=== PATIENT | male | born 1960 | race Caucasian/White ===

== ENCOUNTER 2016-10-10 12:30 | Inpatient (IN) | payer OTHER ==
[~2016-10-10] VITALS: Ht 175.3 cm; Wt 99.9 kg
--- NOTE | ~2016-10-10 | DS ---
ADMIT: 10/10/2016 RM/LOC: 305 [facility] MR#: [id number] [address] [address] SRIDEVI GUTIERREZ [address] [place] [address] General Discharge Summary SEX: M AGE: 56 : 1960 ADMISSION DATE: 10/10/2016 DISCHARGE DATE: 10/15/2016 SERVICE: Neurosurgery. REASON FOR ADMISSION: 1. Right thalamic hemorrhage. 2. Hypertension. 3. Fall. CONSULTS: Dr. Rigoberto Gutierrez with [facility]. HOSPITAL COURSE: Mr. Gutierrez is a very pleasant 56-year-old gentleman. On the day of admission, he was in his normal state of health, had gotten up and went out and had coffee with friends. After returning home from having coffee, he had a conversation with his , she then left to run some errands. He reports he was sitting in the chair, started to feel little nauseated, started to get up to go to the restroom and fell. He reports his left side was weak and he was really not able to move it. He reports that he was able to crawl to the phone and called 911. He was brought to the [facility] Emergency Room. He did verbalize decreased sensation on his left side. His speech was dysarthric, but appropriate. He had some dysmetria with his eyes and some decreased ability to track to the left with some left-sided facial droop and tongue deviation to the left. He did have spastic plegia on the left. CT scan of his head was obtained, which revealed a right-sided thalamic hemorrhage. He was admitted to the intensive care unit for close monitoring and care. Dr. Rigoberto Gutierrez was consulted for co- management of his comorbidities. Hospital day #2, he was awake and alert, he was afebrile, and his vital signs were stable. He had some left flexor extension, but was still spastic with mild improvement. His CT scan showed some slight intraventricular extension of his hemorrhage. He worked with Physical Therapy, Occupational Therapy, and Speech Therapy and tolerated this quite well. He did have an MRI of his brain and had a slight reaction to the contrast and was given some IV Benadryl and tolerated it very well. His MRI revealed a stable right thalamic intraparenchymal hematoma. He also had a carotid ultrasound that revealed no significant stenosis. Hospital day #3, he was awake and alert, he was oriented x4. He was afebrile, and his vital signs were stable. He was moving all extremities on the right, able to move his left pointer finger. His left arm remained spastic with flexor extension. He continued to have no movement of his left leg. He continued to tolerate physical therapy, occupational therapy, and speech therapy. His oral hypertensives were increased. Hospital day #4, he was awake and alert, he was afebrile, and his vital signs were stable. He was moving all extremities x4. It was improved on left. He did have supination and pronation 3/5 to the left upper extremity. He continued to work with therapies and tolerated this well. Hospital day #5, he was awake and alert, he was afebrile, and his vital signs were stable. He was moving all extremities x4. His left hand had some function with 2/5 strength. Hospital day #6, he was awake and alert, he was afebrile, and his vital signs were stable. He was moving all extremities x4. ADMIT: 10/10/2016 RM/LOC: 305 [facility] MR#: [id number] [address] [address] SRIDEVI GUTIERREZ [address] [place] [address] General Discharge Summary SEX: M AGE: 56 : 1960 His left upper extremity with 3/5, his left lower extremity with 3-/5, and he was evaluated by the Inpatient Rehabilitation Unit and deemed to be an appropriate candidate for further inpatient rehabilitation with the plan to return to his prior function of living status. On the day of discharge, he was deemed medically fit for transfer to the Inpatient Rehabilitation Unit. DISCHARGE CONDITION: Good. MEDICATIONS: 1. Colace 100 mg p.o. b.i.d. 2. Coreg 12.5 mg p.o. b.i.d. 3. Hyzaar 100/25, one p.o. daily. 4. Lexapro 10 mg p.o. daily. 5. Milk of magnesia 10 mL p.o. daily p.r.n. 6. Norvasc 5 mg b.i.d. 7. Protonix 40 mg daily. 8. Senokot S b.i.d. p.r.n. 9. Dulcolax 10 mg suppository daily p.r.n. 10.Catapres 0.1 mg p.o. t.i.d. p.r.n. 11.Hydrocodone 5/325 q.4 hours p.r.n. 12.Maalox 30 mL p.o. q.6 hours p.r.n. 13.Tylenol 325 mg two tablets p.o. q.4 hours p.r.n. 14.Zofran 4 mg p.o. q.6 hours p.r.n. DISCHARGE INSTRUCTIONS: Per Dr. Gutierrez: He can have a regular thin liquid diet. He may shower per his norm. He is a fall precaution. He is to continue with physical therapy and occupational therapy. He will call with any questions or concerns including neurological worsening, signs or symptoms of infection, or any other issues. FOLLOWUP: He will follow up with Dr. Gutierrez in one month after discharge. DISPOSITION: He was discharged to the Inpatient Rehabilitation Unit. Total [id number] time for the discharge planning and care coordination was 30 minutes. Naz Meraz APRN / Jon Gutierrez MD / malia JOB #: [id number] CC: Jno Gutierrez MD, Attending Physician Jon Gutierrez MD, Family Physician
--- NOTE | 2016-10-14 11:47 | CO ---
ADMIT: 10/10/2016 RM/LOC: 305 [facility] MR#: [id number] [address] [address] SRIDEVI GUTIERREZ [address] [place] [address] Consultation SEX: M AGE: 56 : 1960 DATE OF CONSULTATION: 10/10/2016 ATTENDING PHYSICIAN: Jon Gutierrez CONSULTING PHYSICIAN: Rigoberto Gutierrez MD REASON FOR CONSULT: Assist with medical management. HISTORY OF PRESENT ILLNESS: The patient is a very pleasant 56-year-old gentleman. He has a past medical history of hypertension and depression, who presented to [facility] Emergency Room today with stroke- like symptoms. He had difficulty with left-sided numbness and hemiplegia. He was noted to be quite hypertensive. CT scanning showed a right thalamic intercerebral bleed. He is admitted for further evaluation and treatment. I am asked to see him for assistance with medical management. The patient noticed has a long history of hypertension and notes medications are not always taken regularly, forgets them frequently. Right now, he denies chest pain, headache. No fevers, chills, or cough, just feels uncomfortable. No bowel or bladder complaints are noted. PAST MEDICAL HISTORY: 1. Hypertension. 2. History of palpitations. 3. Depression. 4. History of tobacco abuse. CURRENT MEDICATIONS: Include: 1. Lexapro. 2. Carvedilol. 3. Losartan. ALLERGIES: NO KNOWN MEDICAL ALLERGIES. SOCIAL HISTORY: Occasional alcohol. He smokes cigars occasionally. Lives in [place]. Normally seen by Dr. Bell over in [place]. REVIEW OF SYSTEMS: Noted above. All other systems were reviewed and are negative. FAMILY HISTORY: Noncontributory. PHYSICAL EXAMINATION: VITAL SIGNS: 97.5, 70, 16, 132/69, 96% on room air. GENERAL: This is a gentleman, who actually appears a little younger than his stated age. HEENT: Head is normocephalic. He does have what looks like abrasion right temporal area. Otherwise, no other lesions are noted. Pupils were equal, round, reactive to light. Patient does not follow cardinal gaze with me right now. His mucous membranes are moist. NECK: Supple. ADMIT: 10/10/2016 RM/LOC: 305 [facility] MR#: [id number] [address] [address] SRIDEVI GUTIERREZ [address] [place] [address] Consultation SEX: M AGE: 56 : 1960 LUNGS: Clear. HEART: Regular. ABDOMEN: Soft, nontender, nondistended. Positive bowel sounds. EXTREMITIES: He has no significant edema. He has good pulses peripherally. NEUROLOGIC: Outside of his lack of cooperation with cardinal gazes, his cranial nerves are intact. He has good strength on the right upper and lower extremity. On the left, he has diminished sensation throughout as well as he has brisk reflexes more so on the left, especially at the left patella, he has a positive Babinski on the left as well. LABORATORY AND X-RAY DATA: Lab work shows hemoglobin of 15.7, white count 11.4, with 178,000 platelets. Mag is 1.7. Normal LFTs; AST 6.5. Sodium 141, potassium 3.6, BUN is 18, creatinine 1.0. Calcium is 8.2. EKG showed normal sinus rhythm at 67 beats per minute. He had normal axis, normal intervals. I do not see any significant ST or T-wave changes. CT scan of the head showed right hemorrhagic infarct within the thalamus measuring 25 x 17 mm. No midline shift. No mass effect to the ventricle. No intraventricular blood. No extra axial fluid collections are seen. His chest x- ray shows mild cardiomegaly, maybe a little bit left lower lobe atelectasis. ASSESSMENT AND PLAN: 1. Right thalamic bleed with left hemiplegia and left sensory deficits. 2. Hypertension, chronic. 3. Depression. 4. History of tobacco abuse/cigars. 5. History of medication noncompliance. 6. Left lower lobe atelectasis. We will follow along closely throughout the hospitalization, try to keep his blood pressure goals, you know, really under 150 range. He is on nicardipine, which I feel like is reasonable at this time. I am going to hold his oral medications. He will be seen by PT/OT and Speech. We will follow up MRI tomorrow and we will add those orals back as appropriate as his swallowing allows us to, and we will follow along with Neurosurgery. Rigoberto Gutierrez MD/ malia JOB #: [id number] CC: Jon Gutierrez, Attending Physician Jon Gutierrez, Family Physician
--- NOTE | 2016-10-15 07:31 | HP ---
ADMIT: 10/10/2016 RM/LOC: 305 [facility] MR#: [id number] [address] [address] SRIDEVI GUTIERREZ [address] [place] [address] Pre-OP History and Physical SEX: M AGE: 56 : 1960 DATE OF SERVICE: REASON FOR ADMISSION: Admission from the ER for right thalamic hemorrhagic infarct in a left arm dominant patient. HISTORY OF PRESENT ILLNESS: Mr. Gutierrez had an acute onset of some nausea. He stood up and fell when he tried to go to take a shower. He threw up at that point and was able to crawl to phone and call 911, and was brought in by EMS. PAST MEDICAL HISTORY: Hypertension and depression. MEDICATIONS: 1. Lexapro. 2. Propranolol. 3. Losartan. ALLERGIES: NONE. SOCIAL HISTORY: He is semi-retired, he is not working currently, lives at home with his . He is an occasional cigar smoker. He drinks beers occasionally with no drug abuse history. FAMILY HISTORY: No history of neurosurgical disease. REVIEW OF SYSTEMS: A complete review of systems was obtained and annotated as they have found in history of present illness. PHYSICAL EXAMINATION: VITAL SIGNS: 68 beats, 196/106 which has decreased to the high 160s/93, 94% on room air, respiring 17 times a minute, pulse 71. GENERAL: He is an otherwise age appropriate appearing 56-year-old gentleman with atraumatic head. No scleral icterus. Clear oropharynx. Normal respiratory excursion, nontender abdomen, 2+ radial pulses. NEUROLOGICAL EXAMINATION: MENTAL STATUS: He is awake and alert. His speech is dysarthric but appropriate. He does not appear to have any aphasias. CRANIAL NERVES: Cranial nerves II through XII were individually tested. He has some dysmetria with his eyes and some decreased ability to track to the left and some left-sided facial droop with tongue deviation to the left. Motor exam reveals 5/5 strength with ability to follow commands on the right with spastic plegia on the left with inability to move with flexion spasticity in the left arm and increased tone in a resting position in the left leg. Deep tendon reflexes 3/4 on the left and 2/4 on the right. Sensation appears to be insensate in the left hemibody and face. ADMIT: 10/10/2016 RM/LOC: 305 [facility] MR#: [id number] [address] [address] SRIDEVI GUTIERREZ [address] [place] [address] Pre-OP History and Physical SEX: M AGE: 56 : 1960 CEREBELLAR: No cerebellar signs, although not really testable on the left. GAIT : Not testable. ASSESSMENT AND PLAN: Mr. Gutierrez is a very pleasant gentleman with right- sided thalamic hemorrhage with some early mass effect, although it is relatively small hemorrhage. At this point, I do not see anything operative. We will perform a stroke evaluation, although this is likely hypertensive stroke or hemorrhagic conversion of bland infarct is also on the differential. We will have Medicine consult for hypertensive management as well as to help transition to rehab. He will likely need a lengthy rehab, although he may have some rehab-able potential due to the relatively small size of this thalamic infarct. Jon Gutierrez MD/ malia JOB #: [id number] CC: Jon Gutierrez, Attending Physician Jon Gutierrez, Family Physician
[2016-11-03] MEDS ORDERED: GLUCOPHAGE-DPS500 MG PO (13:36)
[2016-11-03] MEDS ORDERED: LEXAPRO DPS20 MG PO (13:36)
[2016-11-03] MEDS ORDERED: HYZAAR 100-251 EACH PO (13:36)
[2016-11-03] MEDS ORDERED: COREG DPS12.5 MG PO (13:36)
[2016-11-03] MEDS ORDERED: NEURONTIN DPS300 MG PO (13:37)
[2016-11-03] MEDS ORDERED: NORVASC5 MG PO (13:37)
[2016-11-03] MEDS ORDERED: VITAMIN B-121000 MCG PO (13:37)
[2016-11-03] MEDS ORDERED: CEPACOL SORE T1 EACH PO (13:38)
[2016-11-03] MEDS ORDERED: FLONASE 0.05% D16 GM NS (13:38)
[2016-11-03] MEDS ORDERED: VITAMIN D1000 UNI1 PO (13:38)
[2016-11-03] MEDS ORDERED: TYLENOL DPS325 MG PO (13:38)
--- NOTE | 2016-11-04 01:05 | ER ---
ADMIT: 10/10/2016 RM/LOC: 305 [facility] MR#: [id number] [address] [address] SRIDEVI GUTIERREZ [address] [place] [address] Emergency Room Report SEX: M AGE: 56 : 1960 DATE: 10/10/2016 ADDENDUM: See T-sheet for complete H and P. A 56-year-old male, comes in with left-sided weakness and numbness. Apparently, the patient had got up this morning and was doing fine. He spoke with his and left to go meet friends and have coffee. She then left the house to run some errands. Apparently, the patient then came home after he had been out with his friends, made into the house, and then collapsed and called 911. Last known well time that she saw her was 07:00 a.m. He states that when he collapsed to the ground, he could not move to the left side as he has had no sensation in the left side of his body since onset. He has a history of hypertension, but no history of stroke. No diabetes, coronary artery disease, lung problems, or high cholesterol. He does have lack of sensation to his left upper and lower extremity. He has complete weakness to his left upper and lower extremity. Has very minimal left-sided facial droop. His stroke scale for me was 13. Our workup in the ER consisted of getting the patient over to CAT scan and shortly after I examined the patient, saw his neurologic deficit. CT head did show a right- sided basal ganglion bleed. I contacted Dr. Gutierrez, who saw the patient in the Emergency Department, and the patient will be admitted to his service. DIAGNOSES: 1. Hypertensive intracranial bleed. 2. Left-sided weakness. 3. Left-sided numbness. The patient is admitted in critical condition to the ICU. Garret Philip MD/ malia JOB #: [id number] CC: Jon Gutierrez MD, Attending Physician Jon Gutierrez MD, Family Physician
== END 2016-10-15 12:30 | disposition short-term general hospital (02) | DRG 65 ==
LOC: ER 12:30 → 3ICU 13:47
PROVIDERS: ADMIT Neurological Surgery
PROC: 03HY32Z Insertion of Monitoring Device into Upper Artery, Percutaneous Approach (ICD-10-PCS; principal; 2016-10-10)
DX: I61.8 Other nontraumatic intracerebral hemorrhage (principal); J98.11 Atelectasis; G81.94 Hemiplegia, unspecified affecting left nondominant side; I10 Essential (primary) hypertension; I16.9 Hypertensive crisis, unspecified; E87.6 Hypokalemia; R47.1 Dysarthria and anarthria; R29.810 Facial weakness; F32.9 Major depressive disorder, single episode, unspecified; Z91.14 Patient's other noncompliance with medication regimen; Z72.0 Tobacco use; Z86.73 Personal history of transient ischemic attack (TIA), and cerebral infarction without residual deficits

== ENCOUNTER 2016-10-15 11:58 | Inpatient (IN) | payer OTHER ==
[~2016-10-15] VITALS: Ht 175.3 cm; Wt 94.7 kg
[2016-11-03] MEDS ORDERED: GLUCOPHAGE-DPS500 MG PO (13:36)
[2016-11-03] MEDS ORDERED: COREG DPS12.5 MG PO (13:36)
[2016-11-03] MEDS ORDERED: LEXAPRO DPS20 MG PO (13:36)
[2016-11-03] MEDS ORDERED: HYZAAR 100-251 EACH PO (13:36)
[2016-11-03] MEDS ORDERED: NORVASC5 MG PO (13:37)
[2016-11-03] MEDS ORDERED: NEURONTIN DPS300 MG PO (13:37)
[2016-11-03] MEDS ORDERED: VITAMIN B-121000 MCG PO (13:37)
[2016-11-03] MEDS ORDERED: CEPACOL SORE T1 EACH PO (13:38)
[2016-11-03] MEDS ORDERED: TYLENOL DPS325 MG PO (13:38)
[2016-11-03] MEDS ORDERED: FLONASE 0.05% D16 GM NS (13:38)
[2016-11-03] MEDS ORDERED: VITAMIN D1000 UNI1 PO (13:38)
--- NOTE | 2016-12-06 16:07 | DS ---
ADMIT: 10/15/2016 RM/LOC: 610 [facility] MR#: [id number] 2620 [facility] [address] [place] [address] SRIDEVI GUTIERREZ [address] [place] [address] General Discharge Summary SEX: M AGE: 56 : 1960 ADMISSION DATE: 10/15/2016 DISCHARGE DATE: 11/02/2016 DISCHARGE DIAGNOSIS: Stroke 01.1, left body involvement, right brain, I61.0 nontraumatic intracerebral hemorrhage and hemisphere subcortical, onset 10/10/2016, comorbid conditions per initial H and P. Other diagnoses per hospital course below. HOSPITAL COURSE: Please see my initial H and P for details prior to transfer to the IRU. Pain and bowel regimen adjusted. Protonix changed to Pepcid to decrease risk of C. diff, Lexapro increased to 20 mg for depression. Lab was monitored regularly. PVRs were checked. Early ambulation used for DVT prophylaxis due to cerebral hemorrhage in any time previously. EzPAP was done for high temperature. Liquid stools checked with C. diff test and given Pepto- Bismol p.r.n. diarrhea. Bladder scan of 01/17 with a straight cath necessary. Initial PVR 202. DNR/DNI decision on 10/16/2016. Dietitian followed to optimize nutrition. Pharmacy followed to optimize medication management. Second PVR was 23 mL. O2 was titrated off. EzPAP done p.r.n. sats less than 90%. Encouraged incentive spirometry. EzPAP p.r.n. Inadequate IS. Hypokalemia replaced. Azotemia. Increased p.o. fluid. Hypophosphatemia replaced with K-Phos neutral. B12 deficiency checked by confirmation testing with MMA and replaced with B12, 1000 mcg IM. SCDs in bed. THERESA hose out of bed for DVT prophylaxis and also encouraged ankle pumps, isometrics, and use of low air loss mattress for preventing ulcers. Pepto-Bismol p.r.n. loose stool. PVRs remained normal. Accu-Cheks done q.a.c. and at bedtime with very low-dose sliding scale insulin. Fasting lipid panel done. Pepcid no longer necessary. Metformin started for diabetes, new diagnosis, so we did diabetic education, started diabetic diet. Started him on Zestril for diabetes and hypertension. Hypokalemia again replaced with KCl. Glucophage increased to 850 mg. Discontinue sliding scale insulin, but continued Accu-Cheks. Nonspecific blood pressure readings, so decreased blood pressure medications. Decreased Coreg and Norvasc. Discontinued Zestril. Changed B12 to p.o. Glucophage changed to 850 and a 1000 mg daily, 850 mg with breakfast and 1000 mg with supper. Gabapentin started for insomnia and also itching to his left side for neuritis and neuropathic pain. Lab was followed up on. Blood sugars came down so Glucophage was adjusted to 850 mg and 500 mg. Became hypertensive again, so Norvasc was increased back up to 5 mg b.i.d. Neurontin adjusted for that neuritis. Catapres and hydrocodone discontinued. Vitamin D deficiency replaced with vitamin D 50,000 units and 1000 units daily. Welchol 625 mg p.o. b.i.d., was tried for diarrhea. Blood sugars were well controlled, so Glucophage was changed to 500 mg b.i.d. Welchol decreased down to daily. Gabapentin just at bedtime for insomnia, but then he had that neuritis again earlier in the evening and so we changed the Neurontin back to early evening and at bedtime. Accu-Chek changes q.a.m. daily. Welchol changed to p.r.n. diarrhea. Pepto-Bismol and Zofran no longer necessary. Cough drops p.r.n. Flonase for allergic rhinitis. Lab was followed up on. ADMIT: 10/15/2016 RM/LOC: 610 [facility] MR#: [id number] [address] [address] SRIDEVI GUTIERREZ [address] [place] [address] General Discharge Summary SEX: M AGE: 56 : 1960 Hypokalemia replaced again. The patient was medically stable at time of discharge. Please see U interdisciplinary discharge summary for details regarding progress in therapy. DISCHARGE DISPOSITION: Home. Daughter, Lilibeth, and grandchildren assisted with discharge. We will continue with outpatient PT and OT at [facility]. Obtain needed DME for discharge including the quad cane and shower chair. Daughter provided transport to home. DISCHARGE MEDICATIONS: Please see discharge med rec. FOLLOWUP: Dr. Bell as needed. Sergio Toro MD/ malia JOB #: [id number] CC:
== END 2016-11-02 10:45 | disposition home or self-care (01) | DRG 57 ==
LOC: 6IRU 11:58
PROVIDERS: ADMIT Physical Medicine & Rehabilitation
PROC: F08Z3FZ Feeding/Eating Treatment using Assistive, Adaptive, Supportive or Protective Equipment (ICD-10-PCS; principal; 2016-10-15)
PROC: F08Z1FZ Dressing Techniques Treatment using Assistive, Adaptive, Supportive or Protective Equipment (ICD-10-PCS; principal; 2016-10-15)
PROC: F08 Physical Rehabilitation and Diagnostic Audiology, Rehabilitation, Activities of Daily Living Treatment (ICD-10-PCS; principal; 2016-10-15)
PROC: F07Z9ZZ Gait Training/Functional Ambulation Treatment (ICD-10-PCS; principal; 2016-10-15)
DX: I69.154 Hemiplegia and hemiparesis following nontraumatic intracerebral hemorrhage affecting left non-dominant side (principal); R13.10 Dysphagia, unspecified; I10 Essential (primary) hypertension; I69.191 Dysphagia following nontraumatic intracerebral hemorrhage; F32.9 Major depressive disorder, single episode, unspecified; E87.6 Hypokalemia; E11.9 Type 2 diabetes mellitus without complications; E53.8 Deficiency of other specified B group vitamins; M79.2 Neuralgia and neuritis, unspecified; R19.7 Diarrhea, unspecified; E55.9 Vitamin D deficiency, unspecified; M54.5 Low back pain; G47.00 Insomnia, unspecified; J30.9 Allergic rhinitis, unspecified; F41.9 Anxiety disorder, unspecified; Z66 Do not resuscitate; Z87.891 Personal history of nicotine dependence